=== PATIENT | female | born 1985 | race Caucasian/White ===

== ENCOUNTER → 2018-02-07 | Outpatient (CLI) | payer OTHER ==
[~2018-02-07] MED LIST: IBUP800 PO; Verotin-Gr Cap1 EACH PO
== END | disposition home or self-care (01) ==
LOC: LAB EV 11:54 → LAB SHORT 11:54
DX: N39.0 Urinary tract infection, site not specified (principal)
CPT/HCPCS: 87077; 87086; 87186

== ENCOUNTER 2021-04-27 01:41 | Inpatient (IN) | payer OTHER | END 2021-04-28 14:15 | disposition home or self-care (01) | DRG 807 | LOC: OBS 01:41 → BC 01:45 → OBS 01:58 → BC 01:59 | PROVIDERS: ADMIT Nurse Practitioner Obstetrics & Gynecology | PROC: 10E0XZZ Delivery of Products of Conception, External Approach (ICD-10-PCS; principal; 2021-04-27) | PROC: 10907ZC Drainage of Amniotic Fluid, Therapeutic from Products of Conception, Via Natural or Artificial Opening (ICD-10-PCS; 2021-04-27) | PROC: 0HQ9XZZ Repair Perineum Skin, External Approach (ICD-10-PCS; 2021-04-27) | DX: O42.02 Full-term premature rupture of membranes, onset of labor within 24 hours of rupture (principal); Z37.0 Single live birth; O70.0 First degree perineal laceration during delivery; O99.344 Other mental disorders complicating childbirth; F32.9 Major depressive disorder, single episode, unspecified; O99.02 Anemia complicating childbirth; D64.9 Anemia, unspecified; Z20.822 Contact with and (suspected) exposure to COVID-19; Z3A.38 38 weeks gestation of pregnancy ==

== ENCOUNTER 2021-09-20 09:19 | Day surgery (SDC) | payer OTHER ==
[~2021-09-20] VITALS: Ht 177.8 cm; Wt 79.1 kg
[~2021-09-20 09:19] MED LIST changes: +ESCI10 PO
[2021-09-20] MEDS ORDERED: VITAMIN D31000 UNI1 PO (09:46)
== END 2021-09-20 12:15 | disposition home or self-care (01) ==
LOC: ORSCSDS 09:19
PROVIDERS: Obstetrics & Gynecology
PROC: 0UPH4YZ Removal of Other Device from Vagina and Cul-de-sac, Percutaneous Endoscopic Approach (ICD-10-PCS; principal; 2021-09-20 10:30)
PROC: 0UT74ZZ Resection of Bilateral Fallopian Tubes, Percutaneous Endoscopic Approach (ICD-10-PCS; principal; 2021-09-20 10:30)
DX: Z30.2 Encounter for sterilization (principal); T83.32XA Displacement of intrauterine contraceptive device, initial encounter; N80.3 Endometriosis of pelvic peritoneum
CPT/HCPCS: 88300; 88302; J0171; J0690; J1100; J1885; J2250; J2405; J2704; J2710; J3010; J7120

== ENCOUNTER 2023-06-29 06:06 | Observation (INO) | payer OTHER ==
[2023-06-29] VITALS (9 sets, daily range): BP systolic 119–135; BP diastolic 69–83
[~2023-06-29] VITALS: Ht 177.8 cm; Wt 82.7 kg
[~2023-06-29 06:06] MED LIST changes: +VITAMIN D31000 UNI1 PO
[2023-06-29 07:43] LABS: BASOPHILS ABSOLUTE AUTO 0.03 K/mm3 (0.00-0.23); BASOPHILS PERCENT AUTO 0 % (0-2); EOSINOPHILS ABSOLUTE AUTO 0.04 K/mm3 (0.00-0.68); EOSINOPHILS PERCENT AUTO 1 % (0-6); Hematocrit 33.7 % (33.0-51.0); Hemoglobin 11.2 g/dL (11.5-16.0); IMMATURE GRAN ABSOLUTE AUTO 0.02 K/mm3 (0.00-0.10); IMMATURE GRAN PERCENT AUTO 0 % (0-1); LYMPHOCYTES ABSOLUTE AUTO 1.41 K/mm3 (0.84-5.20); LYMPHOCYTES PERCENT AUTO 21 % (21-46); MONOCYTES ABSOLUTE AUTO 0.49 K/mm3 (0.16-1.47); MONOCYTES PERCENT AUTO 7 % (4-13); Mean Corpuscular HGB 27.7 pg (26.0-34.0); Mean Corpuscular HGB Conc 33.2 g/dL (31.5-36.5); Mean Corpuscular Volume 83 fL (80-100); Mean Platelet Volume 11.7 fL (9.1-12.4); NEUTROPHILS ABSOLUTE AUTO 4.74 K/mm3 (1.96-9.15); NEUTROPHILS PERCENT AUTO 70 % (41-73); Platelet Count 184 K/mm3 (150-400); RDW Coefficient Variation 12.8 % (11.7-14.2); RDW Standard Deviation 39.1 fL (35.1-46.3); Red Blood Cell Count 4.05 M/mm3 (3.80-5.20); White Blood Cell Count 6.73 K/mm3 (4.00-11.30)
[2023-06-29 08:04] LABS: Albumin, Blood 2.9 g/dL (3.4-5.0); Albumin/Globulin Ratio 0.9 (0.8-1.8); Bilirubin, Total 0.2 mg/dL (0.1-1.0); Calcium, Blood 7.8 mg/dL (8.5-10.1); Creatinine, Blood 0.6 mg/dL (0.40-1.00); Globulin, Blood 3.3 g/dL (2.2-4.0); Potassium, Blood 3.4 mmol/L (3.5-5.5); Total Protein, Blood 6.2 g/dL (6.4-8.2)
[2023-06-29] MEDS ORDERED: YAZ 28 TABLET1 EAC1 PO (09:21)
--- NOTE | 2023-06-29 14:07 | NUR ---
06/29/23 1407 Radha Kingston 2GM AT [address] DAVILA.
--- NOTE | 2023-06-29 14:40 | NUR ---
PACU TO ROOM 214 PT WAS BROUGHT OUT TO ROOM 214 FROM PACU VIA Scott DORMAN ARM RESTING ON A PILLOW IN A RELAXED POSITION ON HER ABD, CAP REFIL < 3 SECONDS, REPORTING PAIN OF 5 OUT OF 10, EDUCATED ON PAIN MANAGEMENT AND PLAN OF CARE OVER THE NEXT FEW HOURS. NO S/SX OF DISTRESS AT THIS TIME.
--- NOTE | 2023-06-29 16:12 | NUR ---
DISCHARGE PT LEFT UNIT IN W/C AT APPROXIMATELY 1550 WITH BELONGINGS. D/C EDUATION PROVIDED, PT EXPRESSED UNDERSTANDING. VSS. PT AFEBRILE.
--- NOTE | 2023-06-29 16:22 | NUR ---
DISCHARGE SUMMARY PODO R WRIST ORIF, A/OX4, VSS, TOLERATING PO, PAIN MANAGED WITH PO PAIN MEDICATIONS, PT WAS ABLE TO GET UP AND AMBULATE TO THE BATHROOM WITHOUT ASSISTANCE. IV REMOVED PRIOR TO DC. DISCUSSED DISCHARGE INSTRUCTIONS WITH HER INCLUDING HOME CARE, MEDICATIONS, AND FOLLOW UP APPOINTMENTS. NO QUESTIONS AT THIS TIME, PROVIDED HER WITH EXRA DRESSING TO CHANGE AT HOME BETWEEN NOW AND HER FOLLOW UP. NO QUESTIONS AT THIS TIME, PT ESCORTED OUT VIA WC TO PRIVATE AUTO TO GO HOME.
== END 2023-06-29 15:48 | disposition home or self-care (01) ==
LOC: ER 06:06 → SURS 06:07 → ER 06:07 → SURS 08:06 → ER 12:30 → SURS 15:48
PROVIDERS: Emergency Medicine; ADMIT Orthopaedic Surgery
DX: S52.551A Other extraarticular fracture of lower end of right radius, initial encounter for closed fracture (principal); W11.XXXA Fall on and from ladder, initial encounter; Z79.899 Other long term (current) drug therapy
CPT/HCPCS: 73110; 80053; 85025; 99284-25; A9270; C1713; J0690; J1100; J1170; J1885; J2405; J2704; J3010; J7120